=== PATIENT | male | born 1950 | race Caucasian/White ===

== ENCOUNTER 2024-01-12 15:06 | Emergency (ER) | payer MEDICARE, OTHER ==
--- NOTE | 2024-01-12 15:26 | ED Physician Documentation ---
History of Present Illness - Stated complaint Stated Complaint: GLF - Chief complaint Chief Complaint: Trauma Hd/Nk - Additonal information Additional information: 73-year-old male presents to the emergency department status post fall with c hief complaints head injury and right ankle pain. Reports tripped missing a step falling forward striking his head on pavement. Negative loss of consciousness. No blood thinner use. Has been ambulatory since the event but reports increasing swelling and pain to his right ankle. Review of Systems Constitutional: denies: Fever Eyes: denies: Loss of vision Ears: denies: Loss of hearing Nose: denies: Rhinorrhea / runny nose Throat: denies: Dental pain / toothache Cardiac: denies: Chest pain / pressure Respiratory: denies: Dyspnea GI: denies: Abdominal Pain : denies: Dysuria Skin: denies: Rash PD PAST MEDICAL HISTORY - Past Medical History Past Medical History: Yes Cardiovascular: Hypertension, High cholesterol Respiratory: Asthma - Past Surgical History Past Surgical History: Yes General: Cholecystectomy Ortho: Other - Present Medications Home Medications: Ambulatory Orders Medication Instructions Recorded Confirmed Bacitracin Zinc Oint 1 applic TOP BID #1 each 01/12/24 HYDROcod/ACETAM 5/325 [[place] 5/325] 1 - 2 ea PO Q6H PRN #14 tablet 01/12/24 - Allergies Allergies/Adverse Reactions: Allergies Allergy/AdvReac Type Severity Reaction Status Date / Time No Known Drug Allergies Allergy Verified 01/12/24 15:14 - Social History Does the pt smoke?: Yes Smoking Status: Current every day smoker Does the pt drink ETOH?: No Does the pt have substance abuse?: No - Immunizations Immunizations are current?: Yes PD ED PE NORMAL - General General: Alert and oriented X 3 - HEENT HEENT: EOMI, Ears normal, Moist mucous membranes, Other (Superficial abrasion over the right catholic) - Neck Neck: Supple, no meningeal sign, No bony TTP - Respiratory Respiratory: No respiratory distress - Extremities Extremities: Other (Significant soft tissue swelling and tenderness to the bilateral malleoli.) Results - Vitals Vitals: Vital Signs - 24 hr 01/12/24 01/12/24 15:14 18:15 Temperature 36.5 C 37 C Heart Rate 69 64 Respiratory 16 16 Rate Blood Pressure 130/77 140/87 H O2 Saturation 98 98 Oxygen O2 Source Room air PD Medical Decision Making - ED course Complexity details: reviewed results, considered differential, d/w patient ED course: 73-year-old presents status post fall. Endorsed for mechanical fall tripping on the stairs. Superficial abrasion noted to the right catholic, anterior knees. Significant swelling to the right ankle. Ankle films demonstrate old fracture but no acute fracture. He is provided walking boot for ankle sprain. 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 No signs intercranial bleeding or trauma. All findings including incidental finding of cyst noted to patient. He is given medication for pain control. He is encouraged to follow- up with primary care concerning the incidental finding on his CT. Departure - Departure Disposition: 01 Home, Self Care Clinical Impression: Ankle sprain, Colloid cyst of third ventricle, Abrasion of scalp Instructions: ED Sprain Ankle W X Ray Prescriptions: Bacitracin Zinc Oint 1 applic TOP BID #1 each HYDROcod/ACETAM 5/325 [[place] 5/325] 1 - 2 ea PO Q6H PRN #14 tablet PRN Reason: Pain Comments: Thank you for allowing us to care for you today at [facility]. Today in the emergency department you were evaluated for any possible dangerous or life-threatening medical emergency. Overall your testing in the emergency department today including your x-ray of your ankle and your head CT are reassuring. Your x-ray of your ankle shows an old fracture but does not show any new or acute fractures. Your injury is consistent with a sprain. Please continue to use the boot provided here in the emergency department as needed. He will benefit from keeping your lower extremity elevated and applying ice packs when at rest as these are excellent strategies to decrease swelling and thereby decrease pain. I have written prescription medication to help with pain control. Please use this as directed. Your head CT does not show any acute injury or bleed however as an incidental finding you are noted to have what is known as a Third ventricular colliod cyst. As we discussed in rare instances this can cause obstruction of the cerebrospinal fluid. Your follow-up should be with your primary care doctor initially however they may wish to refer you to specialty care for evaluation of this finding. Again if it anytime you have any new or worsening symptoms please not hesitate to return. Forms: PCP List Discharge Date/Time: 01/12/24 18:15
[2024-01-12 15:27] VITALS: O2SAT 98
[2024-01-12] MEDS: oxyCODONE 5 MG TABLET PO STA (15:43)
--- NOTE | 2024-01-12 15:53 | XRAY Report ---
PROCEDURE: Ankle 3+V RT INDICATIONS: trauma TECHNIQUE: 3 views of the ankle were acquired. COMPARISON: None. FINDINGS: Bones: No fractures or dislocations. Well-corticated bony fragments at the medial malleolus are cons istent with sequelae of remote trauma. Ankle mortise is normally aligned. No suspicious bony lesions . Soft tissues: No tibiotalar joint effusion. Achilles tendon appears normal. Prominent lateral soft tissue swelling. IMPRESSION: Lateral ankle sprain. No acute bony abnormality. Reviewed by: Tanvir Ruff MD on 01/12/2024 3:52 PM PDT Approved by: Tanvir Ruff MD on 01/12/2024 3:52 PM PDT Station ID: [id number]
--- NOTE | 2024-01-12 17:23 | CT Report ---
PROCEDURE: Head WO INDICATIONS: trauma TECHNIQUE: Noncontrast 4.5 mm thick angled axial sections acquired from the foramen magnum to the vertex. For r adiation dose reduction, the following was used: automated exposure control, adjustment of mA and/or kV according to patient size. COMPARISON: None. FINDINGS: Image quality: Diagnostic CSF spaces: Basal cisterns are patent. Lateral ventricles are symmetric. Volume: Vascular calcifications. Periventricular white matter disease is commonly seen with chronic m icroangiopathy. Volume loss is present. These findings are mild to moderate Brain: No acute hemorrhage. No gross loss of vertebral differentiation. 7 mm hyperdensity is seen at the third ventricle at the midline. Craniofacial structures: No significant paranasal sinus opacity. Possible small mucocele of the anter ior ethmoid. IMPRESSION: No acute intracranial hemorrhage. Incidentally noted third ventricle intracranial colloid cyst with hyperdense contents, which can caus e obstruction, no hydrocephalus currently. Reviewed by: Maldonado Jaquez MD on 01/12/2024 5:22 PM PDT Approved by: Maldonado Jaquez MD on 01/12/2024 5:22 PM PDT Station ID: [id number]
[2024-01-12 18:19] VITALS: BP 140/87
== END 2024-01-12 18:15 | disposition home or self-care (01) ==
LOC: ED 15:06
DX: S93.491A Sprain of other ligament of right ankle, initial encounter (principal); S00.01XA Abrasion of scalp, initial encounter; W01.0XXA Fall on same level from slipping, tripping and stumbling without subsequent striking against object, initial encounter; G93.0 Cerebral cysts; F17.200 Nicotine dependence, unspecified, uncomplicated
CPT/HCPCS: 70450; 73610; 99283; 99284; A9270